=== PATIENT | female | born 1940 | race Caucasian/White ===

== ENCOUNTER 2016-04-26 03:54 | Emergency (ER) | payer MEDICARE, BC ==
[2016-04-26 05:27] LABS: Hematocrit 37.6 % (36.0-47.0); Red Blood Cell (RBC) Count 4.41 mill/uL (4.20-5.40); White Blood Cell (WBC) Count 6.1 thou/uL (4.8-10.8)
[2016-04-26 05:28] LABS: Band 3 % (5-11); Mean Platelet Volume 6.5 fL (7.4-10.4); Neutrophil 66 % (42-75)
[2016-04-26 05:29] LABS: Reactive Lymphocytes 2 % (0-10)
[2016-04-26 05:30] LABS: #Basophils 0.6 thou/uL (0.0-0.2); #Eosinphils 0.2 thou/uL (0.0-0.7); #Monocytes 0.5 thou/uL (0.11-0.59); #Neutrophils 4.1 thou/uL (1.40-6.50); %Eosinophils 2.6 % (0.0-10.0); %Lymphocytes 21.1 % (21.0-51.0)
[2016-04-26 05:48] LABS: ALT (SGPT) 13 U/L (0-55); AST (SGOT) 14 U/L (5-34); Alkaline Phosphatase 66 U/L (40-150); Anion Gap 13 mmol/L (10-20); BUN (Urea Nitrogen) 16 mg/dL (9.8-20.1); Bilirubin, Total 0.4 mg/dL (0.2-1.2); CK (CPK) 80 U/L (29-168); Calc. Creatinine Clearance 0 mL/min (70-130); Calcium 9.3 mg/dL (7.8-10.44); Carbon Dioxide 27 mmol/L (23-31); Chloride 105 mmol/L (98-107); Estimated GFR-MDRD 89; Globulin 2.9 g/dL (2.4-3.5); Protein, Total 6.8 g/dL (5.8-8.1)
[2016-04-26 05:52] LABS: Troponin I 0.012 ng/mL (< 0.028)
== END 2016-04-26 05:59 | disposition home or self-care (01) ==
LOC: NAV ERS 03:54
DX: I10 Essential (primary) hypertension (principal); F41.9 Anxiety disorder, unspecified; Z79.899 Other long term (current) drug therapy
CPT/HCPCS: 36415; 80053; 82550; 82553; 84484; 85025; 93005

== ENCOUNTER 2016-11-29 22:31 | Emergency (ER) | payer MEDICARE, BC | END 2016-11-29 22:57 | disposition home or self-care (01) | LOC: NAV ERS 22:31 | DX: I10 Essential (primary) hypertension (principal); F41.9 Anxiety disorder, unspecified | CPT/HCPCS: 99283 ==

== ENCOUNTER 2017-07-23 08:09 | Emergency (ER) | payer MEDICARE, BC | END 2017-07-23 09:23 | disposition home or self-care (01) | LOC: NAV ERS 08:09 | DX: I10 Essential (primary) hypertension (principal); F41.9 Anxiety disorder, unspecified; Z79.899 Other long term (current) drug therapy | CPT/HCPCS: 99283 ==

== ENCOUNTER 2017-08-13 08:41 | Emergency (ER) | payer MEDICARE, BC | END 2017-08-13 09:26 | disposition home or self-care (01) | LOC: NAV ERS 08:41 | DX: I10 Essential (primary) hypertension (principal); F41.9 Anxiety disorder, unspecified; Z79.899 Other long term (current) drug therapy | CPT/HCPCS: 93005 ==

== ENCOUNTER 2017-12-22 15:39 | Emergency (ER) | payer MEDICARE, BC ==
[~2017-12-22 15:39] MED LIST: Iopamidol 370 76% 100 ML VIAL ONE
--- NOTE | 2017-12-22 15:57 | CT ---
CT HEAD NONCONTRAST: DATE: 12/22/17 HISTORY: Slurred speech. Altered mental status. COMPARISON: 10/28/15. FINDINGS: There is no evidence of acute intracranial hemorrhage or infarct. Chronic ischemic small vessel disea se is unchanged in appearance. No mass effect or shift of midline structures. Visualized paranasal si nuses remain well aerated. IMPRESSION: Chronic-type findings are stable. Findings called to Dr. Olvera in the emergency department at 1551 hours. CODE CR. POS: [facility]
[2017-12-22 16:03] LABS: #Basophils 0.2 thou/uL (0.0-0.2); #Eosinphils 0.1 thou/uL (0.0-0.7); #Lymphocytes 2.5 thou/uL (1.20-3.40); #Monocytes 0.6 thou/uL (0.11-0.59); #Neutrophils 7.2 thou/uL (1.40-6.50); %Basophils 1.7 % (0.0-1.0); %Eosinophils 1.3 % (0.0-10.0); %Lymphocytes 23.2 % (21.0-51.0); %Monocytes 5.8 % (0.0-10.0); Hemoglobin 12.5 g/dL (12.0-16.0); Mean Corpuscular HGB CONC 31.5 g/dL (32.0-36.0); Mean Corpuscular Hemoglobin 27.7 pg (27.0-31.0); Mean Corpuscular Volume 88.2 fL (78.0-98.0); Mean Platelet Volume 7.3 fL (7.4-10.4); Platelet Count 131 thou/uL (130-400); RBC Distribution Width 13.2 % (11.5-14.5); White Blood Cell (WBC) Count 10.6 thou/uL (4.8-10.8)
[2017-12-22 16:19] LABS: ALT (SGPT) 13 U/L (8-55); AST (SGOT) 22 U/L (5-34); Albumin 4.1 g/dL (3.4-4.8); Alkaline Phosphatase 71 U/L (40-150); Anion Gap 16 mmol/L (10-20); BUN (Urea Nitrogen) 14 mg/dL (9.8-20.1); Bilirubin, Total 0.2 mg/dL (0.2-1.2); Calc. Creatinine Clearance 0 mL/min (70-130); Calcium 9.3 mg/dL (7.8-10.44); Carbon Dioxide 19 mmol/L (23-31); Chloride 105 mmol/L (98-107); Estimated GFR-MDRD 77; Globulin 2.5 g/dL (2.4-3.5); Glucose 121 mg/dL (83-110); Potassium 4.1 mmol/L (3.5-5.1); Protein, Total 6.6 g/dL (6.0-8.3); Sodium 136 mmol/L (136-145)
[2017-12-22 16:21] LABS: CKMB 1.4 ng/mL (0-6.6); Troponin I 0.011 ng/mL (< 0.028)
[2017-12-22 16:39] LABS: Bilirubin Negative (Negative); Blood, Urine Negative (Negative); Clarity Clear (Clear); Glucose, Urine (Dipstick) Negative (Negative); Leukocyte Negative (Negative); Nitrite Negative (Negative); Protein, Urine (Dipstick) Negative (Neg-Trace); Specific Gravity, Urine 1.015 (1.005-1.030); Urobilinogen 0.2 mg/dL (0.2-1.0)
[2017-12-22 16:41] LABS: INR-International Normal Ratio 0.9; Prothrombin Time 12.3 SEC (12.0-14.7)
[2017-12-22 16:46] LABS: PTT 26.6 SEC (22.9-36.1)
--- NOTE | 2017-12-22 16:57 | CT ---
CT ARTERIOGRAM NECK WITH IV CONTRAST AND 3D MIP IMAGING CT ARTERIOGRAM HEAD WITH IV CONTRAST AND 3D MIP IMAGING CT BRAIN WITH IV CONTRASTS: History: CVA. FINDINGS: Normal branching of the great vessels of the aortic arch with good flow into each carotid and vertebr al system. Degenerative changes throughout the cervical spine. No abnormal areas of intracranial contrast enhancement are apparent. Mild aortic calcification. On the right, there is mild calcification at the carotid bifurcation. No s ignificant stenosis. On the left, mild calcification without significant stenosis. Intracranially, some motion artifact limits detail. [place] is intact. Good flow into each c erebral arterial system. Persistent origin of the right posterior cerebral artery. A 0.4 cm bas ilar tip aneurysm projects to the right of midline, where the right posterior cerebral artery would h ave originated. IMPRESSION: 1. No acute intracranial abnormalities are demonstrated. Mild atherosclerosis. No significant stenosi s. 2. 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 POS: [facility]
== END 2017-12-22 17:55 | disposition short-term general hospital (02) ==
LOC: NAV ERS 15:39
DX: I63.9 Cerebral infarction, unspecified (principal); I10 Essential (primary) hypertension; F41.9 Anxiety disorder, unspecified; Z79.899 Other long term (current) drug therapy
CPT/HCPCS: 0042T; 70450; 70496; 70498; 80053; 81003; 82553; 84484; 85025; 85610; 85730; 93005; 94760

== ENCOUNTER 2018-01-22 06:30 | Emergency (ER) | payer MEDICARE, BC | END 2018-01-22 07:10 | disposition home or self-care (01) | LOC: NAV ERS 06:30 | DX: I10 Essential (primary) hypertension (principal); Z86.73 Personal history of transient ischemic attack (TIA), and cerebral infarction without residual deficits; Z79.899 Other long term (current) drug therapy | CPT/HCPCS: 93005 ==

== ENCOUNTER → 2018-03-11 | Emergency (ER) | payer MEDICARE, BC ==
--- NOTE | 2018-03-11 15:19 | RAD ---
LEFT ANKLE 3 VIEWS: Date: 03/11/18 HISTORY: Fall with ankle injury. FINDINGS: Bones appear slightly demineralized. Calcaneal spurs are present. There are no signs of fracture, dis location, or joint effusion. IMPRESSION: No evidence of fracture. POS: [facility]
== END ==
LOC: NAV ERS 14:38
DX: S93.402A Sprain of unspecified ligament of left ankle, initial encounter (principal); I10 Essential (primary) hypertension; F41.9 Anxiety disorder, unspecified; Z86.73 Personal history of transient ischemic attack (TIA), and cerebral infarction without residual deficits; Z79.899 Other long term (current) drug therapy; X50.1XXA Overexertion from prolonged static or awkward postures, initial encounter

== ENCOUNTER 2018-05-09 18:19 | Emergency (ER) | payer MEDICARE, BC ==
[2018-05-09] MEDS ORDERED: cloNIDine 0.2 MG TAB ONE (18:50)
--- NOTE | 2018-05-09 19:04 | CT ---
CT BRAIN: 05/09/18 HISTORY: Slurred speech. Noncontrast enhanced CT images of the brain is obtained on 05/09/18. Comparison made to previous exam from 12/23/17. Noncontrast enhanced CT images of the brain demonstrates mild cortical atrophy and deep white matter ischemic changes. No evidence of acute intracranial masses, hemorrhages, strokes or contusions seen. Ventricles are of normal size. IMPRESSION: Deep white matter ischemic changes, otherwise unremarkable CT brain. POS: [facility]
[2018-05-09 19:09] LABS: #Basophils 0.1 thou/uL (0.0-0.2); #Eosinphils 0.2 thou/uL (0.0-0.7); #Monocytes 0.7 thou/uL (0.11-0.59); #Neutrophils 5.1 thou/uL (1.40-6.50); %Basophils 1.7 % (0.0-1.0); %Eosinophils 2.7 % (0.0-10.0); %Lymphocytes 24.7 % (21.0-51.0); %Monocytes 8.8 % (0.0-10.0); %Neutrophils 62.2 % (42.0-75.0); Hemoglobin 11.9 g/dL (12.0-16.0); Mean Corpuscular HGB CONC 31.2 g/dL (32.0-36.0); Mean Corpuscular Hemoglobin 27.4 pg (27.0-31.0); Mean Corpuscular Volume 87.7 fL (78.0-98.0); Mean Platelet Volume 7.1 fL (7.4-10.4); Platelet Count 275 thou/uL (130-400); RBC Distribution Width 13.4 % (11.5-14.5); Red Blood Cell (RBC) Count 4.36 mill/uL (4.20-5.40); White Blood Cell (WBC) Count 8.1 thou/uL (4.8-10.8)
[2018-05-09 19:15] LABS: ALT (SGPT) 13 U/L (8-55); AST (SGOT) 21 U/L (5-34); Albumin 4.2 g/dL (3.4-4.8); Alkaline Phosphatase 82 U/L (40-150); Anion Gap 15 mmol/L (10-20); BUN (Urea Nitrogen) 20 mg/dL (9.8-20.1); Bilirubin, Total 0.3 mg/dL (0.2-1.2); Calc. Creatinine Clearance 0 mL/min (70-130); Calcium 9.5 mg/dL (7.8-10.44); Carbon Dioxide 25 mmol/L (23-31); Chloride 104 mmol/L (98-107); Estimated GFR-MDRD 78; Globulin 2.5 g/dL (2.4-3.5); Glucose 118 mg/dL (83-110); Potassium 3.6 mmol/L (3.5-5.1); Protein, Total 6.7 g/dL (6.0-8.3); Sodium 140 mmol/L (136-145)
[2018-05-09] MEDS ORDERED: Aspirin Chewable 81 MG TAB ONE (19:50)
== END 2018-05-09 20:43 | disposition short-term general hospital (02) ==
LOC: NAV ERS 18:19
DX: G45.9 Transient cerebral ischemic attack, unspecified (principal); I10 Essential (primary) hypertension; E78.5 Hyperlipidemia, unspecified; Z79.899 Other long term (current) drug therapy; Z79.82 Long term (current) use of aspirin
CPT/HCPCS: 70450; 80053; 84484; 85025; 93005

== ENCOUNTER 2019-02-22 15:02 | Emergency (ER) | payer MEDICARE, BC | END 2019-02-22 15:35 | disposition home or self-care (01) | LOC: NAV ERS 15:02 | DX: M62.838 Other muscle spasm (principal); M25.552 Pain in left hip; E78.5 Hyperlipidemia, unspecified; E78.00 Pure hypercholesterolemia, unspecified; I10 Essential (primary) hypertension; M19.90 Unspecified osteoarthritis, unspecified site; F41.9 Anxiety disorder, unspecified; Z86.73 Personal history of transient ischemic attack (TIA), and cerebral infarction without residual deficits; Z79.899 Other long term (current) drug therapy | CPT/HCPCS: 99283 ==